=== PATIENT | female | born 1980 | race African-American/Black ===

== ENCOUNTER 2020-10-06 13:26 | Emergency (ER) | payer OTHER, MEDICAID ==
[~2020-10-06] VITALS: Ht 172.7 cm; Wt 113.4 kg
[2020-10-06 15:04] VITALS: BP 180/90
== END 2020-10-06 15:05 | disposition left against medical advice (07) ==
LOC: M.ERS 13:26
DX: Z53.21 Procedure and treatment not carried out due to patient leaving prior to being seen by health care provider (principal)